=== PATIENT | male | born 1970 | race Caucasian/White ===

== ENCOUNTER 2016-10-20 09:58 | Observation (INO) | payer OTHER ==
--- NOTE | 2016-10-20 10:16 | CPEKG ---
Heart Rate: 53 RR Interval: 1132 P-R Interval: 212 QRSD Interval: 96 QT Interval: 404 QTC Interval: 380 P Hope: 50 QRS Hope: 31 T Wave Hope: 68 EKG Severity - ABNORMAL ECG - EKG Impression: SINUS RHYTHM EKG Impression: FIRST DEGREE AV BLOCK EKG Impression: INFERIOR INJURY, PROBABLE EARLY ACUTE INFARCT EKG Impression: RECIPROCAL CHANGES TO HIGH LATERAL LEAD Electronically Signed By: Efra Meehan 21-Oct-2016 14:24:00
--- NOTE | 2016-10-20 10:16 | EDPHY ---
HPI/HX/ROS/PE/MDM Narrative: CHIEF COMPLAINT: Chest pain HPI: The patient is a 46-year-old male who complains of acute chest pain that started at 8am this morning. He was running out the door to bring his child to school and developed chest pain while driving. His pain is localized to the left side. He developed jaw tightness as well and became more concerned. He had associated dizziness. He reports similar chest pain 15 years ago that was related to reflux. The patient went for a 32 mile run 4 days ago and had no chest pain. The patient's chest pain is subsiding, he complains of a dull ache. REVIEW OF SYSTEMS: Aside from elements discussed in the HPI, a comprehensive 10-point review of systems was reviewed and is negative. PMH: Denies. SOCIAL HISTORY: . Denies drug abuse. PHYSICAL EXAM: General: Patient is alert, in no acute distress. ENT: Eyes are normal to inspection. ENT inspection normal. Neck: Normal inspection. Full range of motion. Respiratory: No respiratory distress. Breath sounds normal bilaterally. Cardiovascular: Regular rate and rhythm. Strong peripheral pulses. Abdomen: The abdomen is nontender to palpation. There are no peritoneal signs. There are normal bowel sounds. Back: Normal to inspection. No tenderness to palpation. Skin: Normal color. No rash. Warm and dry. Extremities: Normal appearance. Full range of motion. Neuro: Oriented x3. Normal motor function. Normal sensory function. ED Course: The patient presents with acute chest pain that started at 8am this morning while driving. He had associated dizziness and jaw tightness. Patient has a normal exam. Plan for cardiac workup including BMP, Troponin, EKG, and Chest x- ray. EKG was ordered and interpreted by myself. Please see [facility] system for official reading: Abnormal, possible acute inferior AL. First degree AV block. I ordered a repeat EKG. 10:22 a.m.: I paged cardiology. 10:30 a.m.: I spoke to John with [facility] who consulted the refrigeration mechanic. They would an ECHO. 10:40 a.m.: Aleksey Cárdenas is doing an ECHO. 10:50 a.m.: The patient has a positive Troponin. Patient will be sent to the circus laborer. MDM: This patient presents with ongoing chest pain in the setting of an abnormal EKG concerning for inferior wall abnormality. Given classic nature of symptoms as well as abnormal EKG, I consulted Cardiology immediately upon receipt of the EKG. The patient has no risk factors for cardiac disease and the fact that he was able to run a marathon recently without chest pain certainly seems to lower his risk profile, but given his positive troponin and he will require angiography emergently. - Data Points Laboratory Results: Laboratory Results 10/20/16 10:10 10/20/16 10:10 10/20/16 10/20/16 10:10 10:10 WBC 5.81 10^3/uL 10^3/uL (3.80-9.50) RBC 5.24 10^6/uL 10^6/uL (4.40-6.38) Hgb 15.6 g/dL g/dL (13.7-17.5) Hct 43.9 % % (40.0-51.0) MCV 83.8 fL fL (81.5-99.8) MCH 29.8 pg pg (27.9-34.1) MCHC 35.5 g/dL g/dL (32.4-36.7) RDW 11.9 % % (11.5-15.2) Plt Count 183 10^3/uL 10^3/uL (150-400) MPV 10.4 fL fL (8.7-11.7) Neut % (Auto) 74.5 % H % (39.3-74.2) Lymph % (Auto) 18.2 % % (15.0-45.0) Rhea % (Auto) 5.2 % % (4.5-13.0) Eos % (Auto) 1.5 % % (0.6-7.6) Baso % (Auto) 0.3 % % (0.3-1.7) Nucleat RBC Rel Count 0.0 % % (0.0-0.2) Absolute Neuts (auto) 4.32 10^3/uL 10^3/uL (1.70-6.50) Absolute Lymphs (auto) 1.06 10^3/uL 10^3/uL (1.00-3.00) Absolute Monos (auto) 0.30 10^3/uL 10^3/uL (0.30-0.80) Absolute Eos (auto) 0.09 10^3/uL 10^3/uL (0.03-0.40) Absolute Basos (auto) 0.02 10^3/uL 10^3/uL (0.02-0.10) Absolute Nucleated RBC 0.00 10^3/uL 10^3/uL (0-0.01) Immature Gran % 0.3 % % (0.0-1.1) Immature Gran # 0.02 10^3/uL 10^3/uL (0.00-0.10) Sodium 138 mEq/L mEq/L (134-144) Potassium 4.2 mEq/L mEq/L (3.5-5.2) Chloride 102 mEq/L mEq/L (97-110) Carbon Dioxide 26 mEq/l mEq/l (22-31) Anion Gap 10 mEq/L mEq/L (8-16) BUN 22 mg/dL mg/dL (7-23) Creatinine 0.9 mg/dL mg/dL (0.7-1.3) Estimated GFR > 60 Glucose 107 mg/dL H mg/dL (70-100) Calcium 10.1 mg/dL mg/dL (8.5-10.4) Troponin I 0.337 ng/mL H ng/mL (0-0.034) General Time Seen by Provider: 10/20/16 10:05 Initial Vital Signs: Initial Vital Signs Temperature (C) 36.7 C 10/20/16 10:00 Heart Rate 67 10/20/16 10:00 Respiratory Rate 16 10/20/16 10:00 Blood Pressure 156/85 H 10/20/16 10:00 O2 Sat (%) 98 10/20/16 10:00 O2 Delivery Mode Room Air Allergies/Adverse Reactions: Penicillins Allergy (Unknown, Verified 10/20/16 10:01) as kid Home Medications: Medication Instructions Recorded NK [No Known Home Meds] 10/20/16 Departure - Departure Disposition: [facility] Inpatient Acute Clinical Impression: Acute coronary syndrome Condition: Fair Report Scribed for: Vito Queen Report Scribed by: Radha Shine Date of Report: 10/20/16 Time of Report: 10:16 Physician Review and Approval Statement: Portions of this note were transcribed by an ED scribe. I personally performed the history, physical exam, and medical decision making; and confirm the accuracy of the information in the transcribed note.
[2016-10-20 10:18] LABS: % IMMATURE GRANULYOCYTES 0.3 % (0.0-1.1); ABSOLUTE IMMATURE GRANULOCYTES 0.02 10^3/uL (0.00-0.10); ADD DIFF? NO; ADD MORPH? NO; ADD SCAN? NO; ATYPICAL LYMPHOCYTE FLAG 0 (0-99); FRAGMENT RBC FLAG 0 (0-99); HEMATOCRIT 43.9 % (40.0-51.0); HEMOGLOBIN 15.6 g/dL (13.7-17.5); LEFT SHIFT FLG 0 (0-99); LIPEMIA HEMOLYSIS FLAG 90 (0-99); MEAN CELL HEMOGLOBIN 29.8 pg (27.9-34.1); MEAN CELL HEMOGLOBIN CONCENTR. 35.5 g/dL (32.4-36.7); MEAN CELL VOLUME 83.8 fL (81.5-99.8); MEAN PLATELET VOLUME 10.4 fL (8.7-11.7); PLATELET CLUMPS FLAG 0 (0-99); PLATELET COUNT 183 10^3/uL (150-400); RED BLOOD CELL COUNT 5.24 10^6/uL (4.40-6.38); RED CELL DISTRIBUTION WIDTH 11.9 % (11.5-15.2)
--- NOTE | 2016-10-20 10:26 | CPEKG ---
Heart Rate: 52 RR Interval: 1154 P-R Interval: 224 QRSD Interval: 90 QT Interval: 396 QTC Interval: 369 P Reedy: 56 QRS Reedy: 27 T Wave Reedy: 64 EKG Severity - ABNORMAL ECG - EKG Impression: SINUS RHYTHM EKG Impression: FIRST DEGREE AV BLOCK EKG Impression: INFERIOR INJURY, PROBABLE EARLY ACUTE INFARCT Electronically Signed By: Efra Meehan 21-Oct-2016 14:24:08
[2016-10-20 10:33] LABS: ANION GAP 10 mEq/L (8-16); CALCIUM 10.1 mg/dL (8.5-10.4); CARBON DIOXIDE 26 mEq/l (22-31); CHLORIDE 102 mEq/L (97-110); CREATININE 0.9 mg/dL (0.7-1.3); GLOMERULAR FILTRATION RATE > 60; GLUCOSE 107 mg/dL (70-100); POTASSIUM 4.2 mEq/L (3.5-5.2); SODIUM 138 mEq/L (134-144)
[2016-10-20 10:45] LABS: TROPONIN I 0.337 ng/mL (0-0.034)
[2016-10-20] MEDS ORDERED: ASPIRIN 81 MG CHEWABLE TAB ONE (11:02)
[2016-10-20] MEDS ORDERED: MIDAZOLAM 2 MG/2 ML VIAL ONE (11:03)
[2016-10-20] MEDS ORDERED: LIDOCAINE 1% 30 ML SDV ONE (11:03)
[2016-10-20] MEDS ORDERED: fentaNYL 100 MCG/2 ML INJ ONE (11:03)
[2016-10-20] MEDS ORDERED: IOPAMIDOL (ISOVUE-370) 150 ML BTL IV ONE (11:04)
[2016-10-20] MEDS ORDERED: BIVALIRUDIN 250 MG/5 ML VIAL IV ONE (11:06)
[2016-10-20] MEDS ORDERED: ASPIRIN 81 MG CHEWABLE TAB PO ONE (11:07)
[2016-10-20] MEDS ORDERED: HEPARIN 10,000 UNIT/10 ML MDV ONE (11:27)
[2016-10-20] MEDS ORDERED: VERAPAMIL 5 MG/2 ML VIAL ONE (11:27)
--- NOTE | 2016-10-20 11:53 | GHP ---
[f rep st] HISTORY AND PHYSICAL DATE OF ADMISSION: 10/20/2016 INDICATIONS: Chest pain, elevated cardiac enzymes. HISTORY OF PRESENT ILLNESS: The patient is a pleasant 46-year-old male seen in the emergency depart [facility]. He has no known cardiovascular disease. Additionally, he is very healthy and takes no prescr iption medications. Last week, he ran a 32-mile race in [place], [place]. He is very active and [employer] runs about 40 miles a week. He did so without difficulties. He comes in today with abrupt on set of chest pain. About 8 o'clock this morning, he was getting his kids ready for school. He was in the front seat of the car and developed the abrupt onset of focal left-sided chest pain with radi ation to his jaw. He thinks he may have had slight shortness of breath. There was no associated na usea, vomiting, or diaphoresis. As a result, he came to the emergency department here. On arrival, he was hemodynamically stable. His initial ECG demonstrated sinus bradycardia with a rate of 53 be ats per minute. He had J-point elevation in the inferior leads with slight ST depression in aVL. T he degree of J-point elevation was approximately 1 mm. Additionally, he had slight J-point elevatio n in the lateral leads. The ECG was thought to be nondiagnostic. Subsequently, his blood work retu rned with a troponin elevated at 0.337. The remainder of his labs looked normal. PAST MEDICAL HISTORY: None. MEDICATIONS: None. SOCIAL HISTORY: He is , accompanied by his . He is a roha-qp-[id number] dad. He has 2 childr en. He is active as noted above. He does not smoke. He did smoke until the age of 30. He uses no drugs or alcohol. PAST SURGICAL HISTORY: None. FAMILY HISTORY: His father of a myocardial infarction when he was in his 70s. REVIEW OF SYSTEMS: A full 10-point review of systems was performed and is otherwise negative. PHYSICAL EXAMINATION: VITAL SIGNS: His blood pressure is 143/99, mean of 113, heart rate 64, oxyge n on room air is 98%. GENERAL: Healthy white male in no acute distress. HEENT: Normocephalic, at raumatic. He has anicteric sclerae. Oropharynx unremarkable. Carotids 2+ bilaterally with no brui ts. He has no jugular venous distention, adenopathy or thyromegaly. RESPIRATORY: He is breathing easy, resting comfortably, using no accessory muscles. On auscultation, he has clear lung akers bi laterally. CARDIAC: Precordial inspection is unremarkable. PMI is nondisplaced. On auscultation, he is bradycardic. He has no murmurs, gallops or rubs. ABDOMEN: Soft, nontender with normoactive bowel sounds. EXTREMITIES: Warm, dry, free of edema. VASCULAR: He has 2+ radial, dorsal pedal, femoral arterial pulses with nonpalpable aorta. IMPRESSION: The patient is a pleasant, very healthy 46-year-old male who presents now with an acute coronary syndrome. He has had active, ongoing chest discomfort with an elevated troponin. He will be taken to cardiac catheterization for definitive risk stratification. /[id number]/MODL
[2016-10-20] MEDS ORDERED: ONDANSETRON DISINTEGRATING 4 MG TAB PO PRN (12:09)
[2016-10-20] MEDS ORDERED: ACETAMINOPHEN 325 MG TAB PO PRN (12:09)
[2016-10-20] MEDS ORDERED: ONDANSETRON 4 MG/2 ML VIAL IVP PRN (12:09)
--- NOTE | 2016-10-20 13:04 | PDDXCAT ---
Diagnostic Cath Note - . Date: 10/20/16 Clipman: Avi Indication: other - Procedure Access: right wrist - Materials Left Heart Cath size: 5F Left Heart Cath materials: JL3.5, JR4.0, pigtail - Findings-Left Heart Catheterization LM: Large caliber, normal bifurcation into the LAD and circumflex distributions. Normal in appearance. LAD: Large caliber, transapical. 2 diagonal branches. Normal in appearance. LCX: Moderate caliber. Co dominant. Single obtuse marginal branch, single posterior lateral and PDA. Normal in appearance. RCA: Co dominant. Small PDA without a posterolateral branch. Normal in appearance. LVEF: 60-65%. Wall motion: Focal akinetic segment in the mid diaphragmatic wall. Complications: None. Estimated blood loss: <50ml Closure method: TR Band Assessment: Angiographically normal epicardial coronary arteries. Preserved left ventricular systolic function however there is a small focal area of akinesis in the mid diaphragmatic segment. Clinical presentation with chest discomfort and elevated cardiac enzymes. This suggests myocardial injury in the identified segment in the mid diaphragmatic wall in the absence of obstructive disease. Suspect coronary vasospasm. Plan: The patient will be admitted to the hospital and observed. Serial cardiac enzymes will be drawn. He will be started on low-dose aspirin. He is bradycardic at the present time therefore will not institute beta-kera therapy. We will check his lipids. Intervention: None. Patient Problems: Problems Problem Status Onset Acute coronary syndrome Acute
[2016-10-20 14:52] LABS: CHOLESTEROL 226 mg/dL (140-200); CHOLESTEROL/HDL RATIO 4.19 RATIO (1.00-4.97); HIGH DENSITY LIPOPROTEIN 54 mg/dL (40-65); LDL/HDL RATIO 2.81 RATIO (1.00-3.64); LOW DENSITY LIPOPROTEIN 152 mg/dL (70-100); NON-HIGH DENSITY LIPOPROTEIN 172 mg/dL (90-129); TRIGLYCERIDE 101 mg/dL (40-150); VERY LOW DENSITY LIPOPROTEINS 20 mg/dL (8-25)
--- NOTE | 2016-10-20 16:07 | ECHO ---
[id number] + + [address] : : [place] [address] : : [phone] + + Adult Echocardiographic Report + --+ :Name: JOSIANE ZENDEJAS LStudy Date: 10/20/2016 10:51 AM : : Hospital Admission Number: [id number] : :: 1970 Gender: Male Height: 71 in : :Age: 46 yrs Race: WH Weight: 185 lb : :Reason For Study: eval LVFX : : BSA: 2.0 meter s2: :History: CP ABNL ecg : + --+ MMode/2D Measurements \T\ Calculations IVSd: 0.88 cm RVDd: 3.7 cm FS: 25.9 % Ao root diam: LVPWd: 0.94 cm LVIDd: 4.9 cm EDV(Teich): 3.1 cm LVIDs: 3.6 cm 111.2 ml ESV(Teich): 54.8 ml EF(Teich): 50.7 % LVLd ap4: 9.7 cm SV(MOD-sp4): EDV(MOD-sp4): 94.0 ml 164.0 ml LVLs ap4: 7.9 cm ESV(MOD-sp4): 70.0 ml EF(MOD-sp4): 57.3 % Normal Measurement Values: + + :LVIDd (3.5-5.7cm) IVSd (0.6-1.1cm) LVPWd (0.6-1.1cm) Aortic Root (2.0-3.7cm)Left Atrium (1.5-4.0cm): :LV Vol(d) (76-115ml) LV Vol(s) (29-48ml) Ejec Fraction (50-65%)PV Angel (0.6- 1.2m/s) TV Angel (0.4-1.0m/s) : :MV E Angel (0.8-1.0m/s)MV A Angel (0.3-1.0m/s)LVOT Angel (0.7-1.2m/s) Asc Ao Angel ( 0.9-1.8m/s) : + + Doppler Measurements \T\ Calculations MV E max angel: Ao V2 max: LV V1 max: PA V2 max: 65.6 cm/sec 108.0 cm/sec 92.8 cm/sec 88.2 cm/sec MV A max angel: Ao max P.7 mmHg LV V1 max PG: PA max P.9 cm/sec 3.4 mmHg 3.1 mmHg MV E/A: 1.5 MV dec time: 0.21 sec Left Ventricle The left ventricle is normal in size and function. There is normal left ventricular wall thickness. Ejection Fraction = 55%. No regional wall motion abnormalities noted. Right Ventricle The right ventricle is normal in size and function. Atria The left atrial size is normal. Right atrial size is normal. Mitral Valve The mitral valve is normal in structure and function. There is no mitral valve stenosis. There is trace to mild mitral regurgitation. Tricuspid Valve The tricuspid valve is normal in structure and function. There is no tricuspid stenosis. There is trace tricuspid regurgitation. Aortic Valve The aortic valve is normal in structure and function. There is no aortic stenosis. There is no aortic insufficiency. Pulmonic Valve The pulmonic valve is normal in structure and function. Great Vessels The aortic root is normal size. Pericardium/Pleural There is no pericardial effusion. Conclusion A two-dimensional transthoracic echocardiogram with M-mode and Doppler was performed. The left ventricle is normal in size and function. Ejection Fraction = 55%. There is a small focal akinetic area in the mid posterolateral wall. Valve appearance is normal. There is trace to mild mitral regurgitation. There is trace tricuspid regurgitation. Final Reading Physician: Edgard Moss signed on 10/20/2016 04:06 PM Ordering Physician: Vito Queen Performed By: Mirtha Keane
[2016-10-20 18:01] LABS: PHENCYCLIDINE URINE BCH < 6 ng/ml (NEGATIVE); PHENCYCLIDINE URINE BCH NEGATIVE (NEGATIVE); TETRAHYDROCANNABINOL URINE < 5 ng/mL (NEGATIVE); TETRAHYDROCANNABINOL URINE NEGATIVE (NEGATIVE)
[2016-10-21 07:50] LABS: HEMATOCRIT 46.4 % (40.0-51.0)
--- NOTE | 2016-10-21 08:59 | CPEKG ---
Heart Rate: 57 RR Interval: 1053 P-R Interval: 208 QRSD Interval: 84 QT Interval: 360 QTC Interval: 351 P Cleveland: 67 QRS Cleveland: 5 T Wave Cleveland: 35 EKG Severity - NORMAL ECG - EKG Impression: SINUS RHYTHM EKG Impression: INFERIOR ST ELEVATION Electronically Signed By: Efra Miller 21-Oct-2016 18:41:57
[2016-10-21] MEDS ORDERED: ASPIRIN 81 MG CHEWABLE TAB PO SCH (09:00)
[2016-10-21] MEDS ORDERED: ATORVASTATIN CALCIUM 40 MG TAB PO SCH (10:00)
[2016-10-21] MEDS ORDERED: CARVEDILOL 3.125 MG TAB PO SCH (11:00)
[2016-10-21 11:31] VITALS: PULSE 61; RESP 16
[2016-10-21] MEDS ORDERED: PNEUMOCOCCAL 0.5ML VACCINE VIAL IM ONE (14:23)
[2016-10-21] MEDS ORDERED: NITROGLYCERIN 0.4 MG BTL SL PRN (14:59)
[2016-10-21 15:18] VITALS: BP 132/85; TEMP 97.7; O2SAT 96
--- NOTE | 2016-10-21 22:48 | GDS ---
[f rep st] DISCHARGE SUMMARY ADMISSION DIAGNOSES: 1. Chest pressure. 2. Abnormal electrocardiogram. DISCHARGE DIAGNOSIS: 1. Non-ST segment elevation myocardial infarction. 2. Hyperlipidemia PROCEDURES DONE DURING HOSPITALIZATION: 1. Electrocardiogram. 2. Chest x-ray. 3. Echocardiogram. 4. Diagnostic coronary catheterization. BRIEF HISTORY: Please see H and P. The patient is a 46-year-old male who has no significant history of cardiovascular disease. He is a very healthy gentleman. He had recently ran 32 miles in [place], [place] last week with no symptoms. Reporting yesterday around 8 o'clock in the morning, developing a focal left chest pressure with radiation to the jaw and reporting mild shortness of breath. The patient comes to the emergency department for further evaluation. Upon arrival, his initial ECG demonstrates sinus bradycardia with J-point elevation in his inferior leads slightly and slight ST depression in aVL lead. J-point elevation was less than 1 mm. Incidentally, the patient underwent a stat echocardiogram which did note a small focal akinetic area in the mid posterior lateral wall. His ejection fraction was noted to be 55%. The patient was taken urgently to the cardiac catheterization suite. There, Dr. Cárdenas performed a diagnostic heart catheterization on him showing left main normal in size with no apparent disease ; LAD was a large caliber with 2 diagonal branches, normal in appearance; circumflex was moderate caliber, codominant with single OM branch, single posterolateral and PDA branches, which showed no coronary artery disease; RCA was codominant; small PDA without a posterior branch, normal appearance; LVEF was 60% to 65% with wall motion showing akinetic segment in the mid diaphragmatic wall. The patient did have significantly elevated troponin levels which did peak during hospitalization up to 17.3 last evening at 2120. In discussion with Dr. Cárdenas, it was felt that the etiology of his myocardial infarction is unknown, potentially suspect coronary vasospasms. The patient ultimately transferred to the PCU telemetry floor for overnight observation. There, soon after the cardiac catheterization, he became chest pain-free. He has been up and walking on the monitor with no symptoms of ischemia. He has been on continuous cardiac monitoring showing sinus bradycardia with occasional premature ventricular contraction. Noted a rare couplet. No other significant pauses or malignant arrhythmias noted. At the current time, patient denies any chest pain or shortness of breath. His vital signs have remained stable. He has been started on anti-platelet therapy of aspirin, statin therapy with Lipitor and beta blockage therapy of carvedilol. CHARISSE inhibitor therapy was held due to noted lower blood pressures which will be considered to start in an outpatient setting. PHYSICAL EXAMINATION: GENERAL APPEARANCE: Medium built, well-groomed, male. He is alert and oriented to person, place, time, and situation. Appears to be under no acute distress. VITAL SIGNS: Blood pressure of 132/85. Heart rate is 61 in sinus rhythm on the monitor. Respiration are 96% on room air. Temperature of 36.5 degrees Celsius. HEENT: Head is normocephalic. Lips and tongue are pink and moist with no signs of cyanosis. Conjunctivae pink. NECK: Trachea is midline. +2 carotid pulses bilateral. No auscultated bruits. No jugular vein distention. RESPIRATORY: Lungs clear to auscultation. No rhonchi, rales or wheezes. No accessory muscle use. intercostal muscle retraction noted. CARDIAC: Regular rate, regular rhythm. S1, S2. No S3, S4 noted. ABDOMEN: Soft, nontender. Bowel sounds x4 quadrants. No organomegaly. No palpable masses. SKIN: [place], warm, dry. No cyanosis. No clubbing. No peripheral edema. VASCULAR: +2 carotids bilateral. +2 radials bilateral. +2 dorsal, pedal and tibial pulses bilateral. Catheter insertion site: Right wrist with no redness, swelling, drainage, ecchymosis or hematoma. NEURO: Cranial nerves 2 though 12 grossly intact. LABORATORY STUDIES: On admission, white blood cell count 5.81, hemoglobin 15.6 , hematocrit 43.9, platelet count 183. Sodium 138, potassium 4.2, chloride 102 , CO2 26, BUN 22, creatinine 0.9. Glucose 107. Calcium 10.1. Total triglycerides 101. Total cholesterol 226. LDL 152, HDL 54, TSH 1.90. The patient had a negative drug screen except for benzos post catheterization in which he received Versed. The patient's initial troponin on arrival was 0.337. It peaked last evening at 17.30. This morning, it was 15.90. He did have an ESR done, which was 4, and C-reactive protein, which was less than 5.0. PROCEDURES: Echocardiogram as mentioned above. Cardiac catheterization as mentioned above. Chest x-ray on admission showed no acute cardiopulmonary process. A.M. electrocardiogram showed sinus rhythm, normal axis, submillimeter ST elevation in inferior leads. DISCHARGE DISPOSITION: Patient will be discharged home in fair condition. He is under activity restrictions of no strenuous activity for the next week. He is not to lift more than 10 pounds with the right arm for the next week. DISCHARGE MEDICATIONS: Please see discharge medication reconciliation sheet. The patient has been started on beta kera of carvedilol, aspirin at 81 mg, atorvastatin at 40 mg. He has been ordered to have sublingual nitroglycerin to take home. No CHARISSE inhibitor has been instituted at this time, but will be instituted as an outpatient. DISCHARGE INSTRUCTIONS: Post cardiac catheterization discharge instructions went over with the patient including monitoring for signs of infection, bleeding precautions, activity restrictions. Also reviewed all medications with patient discussing potential side effects. Discussed post [place] care. Patient has been referred to cardiac rehab in which we will him start in the next week or two. He has been scheduled a followup appointment next week. At the time of discharge, patient verbalizes understanding all instructions and has no further questions. TOTAL TIME SPENT ON DISCHARGE: Greater than 30 minutes. /[id number]/MODL MTDD
== END 2016-10-21 16:30 | disposition home or self-care (01) ==
LOC: F2W 15:39
PROVIDERS: ADMIT Internal Medicine Cardiovascular Disease; ATTEND Internal Medicine Cardiovascular Disease
DX: I21.4 Non-ST elevation (NSTEMI) myocardial infarction (principal); E78.5 Hyperlipidemia, unspecified; Z23 Encounter for immunization; Z87.891 Personal history of nicotine dependence; Z82.49 Family history of ischemic heart disease and other diseases of the circulatory system
CPT/HCPCS: 71020; 90471; 93005; 93308; 93458; 99285; C1769; G0378; 80307; G0009; G0480; J0583; J1200; J1644; J2250; J3010; Q9967

== ENCOUNTER → 2017-09-19 | Outpatient (CLI) | payer OTHER | LOC: BMCIMAGING 12:33 | PROVIDERS: ATTEND Nurse Practitioner Adult Health | DX: M54.5 Low back pain (principal) ==